=== PATIENT | male | born 1970 | race Caucasian/White ===

== ENCOUNTER 2019-07-22 01:24 | Emergency (ER) | payer OTHER ==
[~2019-07-22] VITALS: Ht 180.3 cm; Wt 97.7 kg
[2019-07-22 02:19] LABS: BASO % 0.6 % (0.0-1.0); EOS # 0.1 10^3/uL (0.0-0.5); EOS % 1.2 % (0.0-3.0); HEMOGLOBIN 15.4 g/dl (13.5-17.5); LYMPH # 1.9 10^3/uL (1.5-5.0); LYMPH % 27.8 % (24.0-44.0); MEAN CORPUSCULAR HEMOGLOBIN 29.4 pg (27.0-33.0); MEAN CORPUSCULAR HGB CONC 32.1 g/dl (32.0-36.5); MEAN CORPUSCULAR VOLUME 91.8 fl (80.0-96.0); MONO # 0.7 10^3/uL (0.0-0.8); MONO % 10.7 % (0.0-5.0); NEUTROPHILS % 59.3 % (36.0-66.0); PLATELET COUNT, AUTOMATED 179 10^3/uL (150-450); RED BLOOD COUNT 5.23 10^6/uL (4.30-6.10); WHITE BLOOD COUNT 6.8 10^3/uL (4.0-10.0)
[2019-07-22 02:45] LABS: ALBUMIN 3.8 GM/DL (3.2-5.2); ALT/SGPT 39 U/L (12-78); BILIRUBIN,DIRECT 0.1 MG/DL (0.0-0.2); BILIRUBIN,TOTAL 0.5 MG/DL (0.2-1.0); BLOOD UREA NITROGEN 22 MG/DL (7-18); CALCIUM LEVEL 8.4 MG/DL (8.5-10.1); CARBON DIOXIDE LEVEL 27 MEQ/L (21-32); CHLORIDE LEVEL 111 MEQ/L (98-107); CREATININE FOR GFR 1.15 MG/DL (0.70-1.30); GLOMERULAR FILTRATION RATE > 60.0 (>60); GLUCOSE, FASTING 108 MG/DL (70-100); LIPASE 100 U/L (73-393); POTASSIUM SERUM 4.1 MEQ/L (3.5-5.1); SODIUM LEVEL 144 MEQ/L (136-145); TOTAL PROTEIN 6.9 GM/DL (6.4-8.2)
[2019-07-22] MEDS ORDERED: ONDANSETRON 4MG/2ML VIAL (J2405) IV ONE ×2 (03:00→03:15)
[2019-07-22] MEDS ORDERED: MORPHINE 4 MG/ML 1ML VIAL/SYRINGE (J2270) IV PRN (03:00)
[2019-07-22] MEDS ORDERED: ALLE1TAB23 PO (03:15)
[2019-07-22] MEDS ORDERED: BUPR150T3 PO (03:15)
[2019-07-22] MEDS ORDERED: MUCI1TAB18 PO (03:15)
[2019-07-22] MEDS ORDERED: VITA1CAP25 PO (03:15)
[2019-07-22] MEDS ORDERED: MELO7.5T35 PO (03:15)
[2019-07-22] MEDS ORDERED: KETOROLAC 30 MG/ML VIAL (J1885) IV ONE (03:30)
--- NOTE | 2019-07-22 04:19 | REPVR ---
PROCEDURE INFORMATION: Exam: CT Abdomen And Pelvis Without Contrast Exam date and time: 07/22/2019 3:16 AM Age: 49 years old Clinical history: Abdominal pain; Flank; Right; Additional info: Right sided pain, hematuria TECHNIQUE: Imaging protocol: Computed tomography of the abdomen and pelvis without contrast. Radiation optimization: All CT scans at this facility use at least one of these dose optimization techniques: automated exposure control; mA and/or kV adjustment per patient size (includes targeted exams where dose is matched to clinical indication); or iterative reconstruction. COMPARISON: No relevant prior studies available. FINDINGS: Liver: Normal. No mass. Gallbladder and bile ducts: Normal. No calcified stones. No ductal dilation. Pancreas: Normal. No ductal dilation. Spleen: Normal. No splenomegaly. Adrenals: Normal. No mass. Kidneys and ureters: Right perinephric stranding and induration and minimal right hydronephrosis and hydroureter with periureteral edema which extends to the right UVJ with a 2 mm distal right UVJ calculus. Stomach and bowel: There is colonic diverticulosis without evidence of diverticulitis. Appendix: A normal appendix is seen. Intraperitoneal space: Unremarkable. No free air. No significant fluid collection. Vasculature: Unremarkable. No abdominal aortic aneurysm. Lymph nodes: Unremarkable. No enlarged lymph nodes. Bladder: Unremarkable as visualized. Reproductive: Unremarkable as visualized. Bones/joints: Unremarkable. No acute fracture. Soft tissues: Clips and dense material about the right inguinal canal suggesting prior hernia repair. IMPRESSION: 1. 2 mm distal right UVJ calculus with obstructive uropathy of the right upper tract. 2. Colonic diverticulosis without diverticulitis. 3. Suggestion of prior right inguinal hernia repair. Electronically signed by: Manjit Ponce On 07/22/2019 04:18:57 AM
[2019-07-22] MEDS ORDERED: FLOM0.4C39 PO (05:04)
[2019-07-22] MEDS ORDERED: PERC5TAB12 PO (05:04)
[2019-07-22] MEDS ORDERED: TAMSULOSIN 0.4 MG CAP PO ONE (05:15)
[2019-07-22] MEDS ORDERED: OXYCODONE/APAP 5MG/325MG(BULK FOR ED) 1 TABLET PO ONE (05:15)
[2019-07-22 05:35] VITALS: BP 120/79
== END 2019-07-22 05:37 | disposition home or self-care (01) ==
LOC: M ED 01:24
DX: N20.1 Calculus of ureter (principal); K57.30 Diverticulosis of large intestine without perforation or abscess without bleeding; Z79.2 Long term (current) use of antibiotics; Z79.899 Other long term (current) drug therapy
CPT/HCPCS: 74176; 80048; 80076; 81001; 83690; 85025; 93041; 96374; 96375; 99284; J1885; J2270; J2405

== ENCOUNTER → 2020-07-14 | Outpatient (REF) | payer OTHER ==
[~2020-07-14] MED LIST: ALLE1TAB23 PO; BUPR150T3 PO; COLC0.6T47 PO; DULO1CAP6 PO; FLOM0.4C39 PO; MELO7.5T35 PO; MUCI1TAB18 PO; OMEP1CAP73 PO; PERC5TAB12 PO; PRED20TA PO; VITA1CAP25 PO; XARE20TA PO
== END ==
LOC: M LAB REF 17:08
PROVIDERS: ATTEND Internal Medicine Endocrinology, Diabetes & Metabolism
DX: E04.2 Nontoxic multinodular goiter (principal)

== ENCOUNTER → 2020-08-31 | Outpatient (CLI) | payer OTHER ==
[~2020-08-31] MED LIST changes: -BUPR150T3 PO; +BUPR150T4 PO; +D31000TA2 PO
--- NOTE | 2020-08-31 11:21 | REP ---
INDICATION: PAIN AND SWELLING/CHRONIC DVT COMPARISON: None. TECHNIQUE: Morgan scale and color Doppler evaluation right lower extremity using linear high frequency transducer. FINDINGS: Ultrasound examination of the right lower extremity deep venous structures from the common femoral vein to the popliteal vein demonstrates normal compressibility flow and wave patterns in response to respiration and augmentation. There is no evidence for deep venous thrombosis. 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 IMPRESSION: No evidence for deep venous thrombosis. <Electronically signed by Lisandro Cano > 08/31/20 [id number]
== END ==
LOC: M RAD 10:57
PROVIDERS: ATTEND Internal Medicine Medical Oncology
DX: R22.42 Localized swelling, mass and lump, left lower limb (principal); M79.605 Pain in left leg

== ENCOUNTER → 2020-11-10 | Outpatient (CLI) | payer OTHER ==
[~2020-11-10] MED LIST changes: +BUPR150T12 PO; -BUPR150T4 PO
--- NOTE | 2020-11-11 13:55 | REP ---
INDICATION: F/U DVT. COMPARISON: None. TECHNIQUE: Left lower extremity deep vein duplex ultrasound for thrombus FINDINGS: There are no comparison studies are film file. Duplex deep vein ultrasound performed from the popliteal vein to the common femoral vein. There is eccentric echogenic thrombus extending from the popliteal vein to the mid femoral vein suggestive of nonocclusive thrombus. IMPRESSION: There is eccentric nonocclusive thrombus extending from the popliteal vein to the mid femoral vein. This could be chronic. There are no comparison studies. <Electronically signed by Lorenzo Newell > 11/11/20 [id number]
== END ==
LOC: M RAD 10:29
PROVIDERS: ATTEND Internal Medicine Medical Oncology
DX: I82.402 Acute embolism and thrombosis of unspecified deep veins of left lower extremity (principal)

== ENCOUNTER → 2021-01-19 | Outpatient (CLI) | payer OTHER ==
[~2021-01-19] MED LIST changes: +GABA-282 PO; +ISOVUE-370 76% 100ML VIAL As Ordered ONE
--- NOTE | 2021-01-22 08:25 | REP ---
INDICATION: SOFT TISSUE DENSITY COMPARISON: None TECHNIQUE: Axial contrast enhanced images from the thoracic inlet to the upper abdomen with coronal and sagittal reformations using 75 ml Isovue 370 intravenous contrast material. This CT examination was performed using the following dose reduction techniques: Automated exposure control, adjustment of mA and/or kv according to the patient's size, and use of iterative reconstruction technique. FINDINGS: The bilateral lung ann are relatively well aerated and essentially clear. Minimal chronic changes are appreciated including 1 cm non solid ground-glass nodular density in the apical right lower lobe remaining stable compared to 2020. No acute consolidation, significant nodule, or mass. No effusion. No pneumothorax. Tracheobronchial tree is patent. Mediastinum demonstrates normal thoracic aorta, pulmonary vasculature, and heart/pericardium. No significant/abnormal anterior mediastinal soft tissues currently appreciated. No axillary, hilar, or mediastinal adenopathy. Surrounding musculoskeletal structures are intact. Limited upper abdomen demonstrates normal bilateral adrenal glands and mild fatty infiltration to the liver. IMPRESSION: 1. Normal contrast-enhanced chest CT. 2. No acute mediastinal or pleuroparenchymal process. 3. Questionable anterior mediastinal abnormality on prior examination is no longer appreciated. <Electronically signed by Lisandro Cano > 01/22/21 [id number]
== END ==
LOC: M RAD 07:47
PROVIDERS: ATTEND Physician Assistant
DX: R22.2 Localized swelling, mass and lump, trunk (principal)
CPT/HCPCS: 71260; Q9967

== ENCOUNTER → 2021-05-12 | Outpatient (CLI) | payer OTHER ==
[~2021-05-12] MED LIST changes: -ISOVUE-370 76% 100ML VIAL As Ordered ONE
--- NOTE | 2021-05-12 10:53 | REP ---
INDICATION: DVT F/U. COMPARISON: 11/10/2020. TECHNIQUE: Multiple ultrasonographic images of the deep venous structures of the left lower extremity were obtained from the inguinal ligament to the ankle. Venous compression techniques, color doppler imaging, and augmentation techniques were also obtained where appropriate. As per the ACR guidelines the anterior tibial vein can not be effectively evaluated. Only compression techniques in the calf on the peroneal and posterior tibial veins was attempted/performed. FINDINGS: Once a deep vein has been exposed to a thrombus the moser of that vein are for ever changed as fibrin alters the integrity of the venous wall making it less amenable to coaptation. A non coaptable venous wall is the 1st sign of thrombosis. Additionally, scar tissue can give the same ultrasonographic appearance of an acute thrombus. Once again, in the left superficial femoral vein there is echogenic material along the vessel wall. Sonographically, this appears unchanged. Coaptation is unobtainable. IMPRESSION: Left superficial femoral vein sonographic findings as described above. Whether this represents an acute thrombus superimposed upon chronic change or purely chronic change cannot be determined by this ultrasound exam. <Electronically signed by Tj Armenta > 05/12/21 [id number]
== END ==
LOC: M RAD 10:10
PROVIDERS: ATTEND Internal Medicine Medical Oncology
DX: I82.502 Chronic embolism and thrombosis of unspecified deep veins of left lower extremity (principal)